=== PATIENT | male | born 1980 | race Caucasian/White ===

== ENCOUNTER → 2021-09-21 | Outpatient (CLI) | payer BC | LOC: MRI 09-08 08:30 | DX: G35 Multiple sclerosis (principal); M47.812 Spondylosis without myelopathy or radiculopathy, cervical region | CPT/HCPCS: 70553; 72156; A9577 ==

== ENCOUNTER → 2021-10-13 | Outpatient (CLI) | payer BC | LOC: MRI 12:52 | DX: G35 Multiple sclerosis (principal); M51.34 Other intervertebral disc degeneration, thoracic region | CPT/HCPCS: 72157; A9577 ==